=== PATIENT | male | born 1990 | race Caucasian/White ===

== ENCOUNTER 2024-10-20 08:07 | Outpatient (CLI) | payer BC, SELFPAY ==
--- NOTE | 2024-10-20 08:15 | CRLHL7_ITS ---
For Patients: As a result of the Century Cures Act, medical imaging exams and procedure reports are released immediately into your electronic medical record. You may view this report before your referring provider. If you have questions, please contact your health care provider. CLINICAL INDICATION: Metatarsalgia of the 4th COMPARISON IMAGING STUDIES: Radiographs 10/10/2024. TECHNICAL: Noncontrast MRI of the right forefoot. Axial, sagittal and coronal T1, PD and STIR images. 1.5 Sherin MR scanner. 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 There is also periarticular soft tissue edema and synovitis within the joint space. Radiographically, there is erosive change. On sagittal STIR image number 8 of series 7, there is a nondisplaced fracture involving the proximal metaphysis/base of the proximal phalanx of the 4th toe. Arthrosis of the interphalangeal joint of the 5th toe with periarticular bone marrow edema. There are likely small erosions. Less pronounced changes involve the interphalangeal joints of the 2nd and 3rd toes. Minor 1st MTP joint degenerative changes. Mild hallux valgus. Bunion. 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 Second through 5th MTP joints are maintained. The metatarsal bones are intact without significant metatarsal bone stress change nor acute fracture. Incomplete bipartite morphology of the medial sesamoid bone. Flexor and extensor tendons are intact. No significant muscle atrophy. No Dhillon`s neuroma. Plantar aponeurosis at the forefoot level is intact. IMPRESSION: 1. 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 Severe arthrosis of the interphalangeal joint of the 5th toe with periarticular bone marrow edema and suspected small erosions. Lesser changes involving other interphalangeal joints. These findings raise the possibility of seronegative spondyloarthropathy (such as psoriatic arthritis) versus inflammatory arthropathy (e.g. Rheumatoid arthritis). Polyarticular involvement makes infection less likely. 2. Superimposed nondisplaced fracture of the proximal metaphysis/base of the proximal phalanx of the 4th toe. 3. 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 4. No metatarsal bone stress change or metatarsal fracture. Dictated by Elie Boone MD @ 10/20/2024 1:52:59 PM (Electronically Signed)
== END 2024-10-20 08:08 | disposition home or self-care (01) ==
LOC: MRI 08:08
PROVIDERS: Visit Provider Podiatrist
DX: M77.41 Metatarsalgia, right foot (principal); S92.911A Unspecified fracture of right toe(s), initial encounter for closed fracture; M20.41 Other hammer toe(s) (acquired), right foot
CPT/HCPCS: 73718

== ENCOUNTER 2025-06-09 18:45 | Emergency (ER) | payer BC, SELFPAY ==
--- OUTSIDE RECORDS SUMMARY | 2025-06-09 15:40 | XMS_ITS | Encounter Summary ---
Author Organization [employer] Address [address] [address] Care Team Providers Care Route Vending Machine Servicer Name Role Phone Angel Maria MD Primary Care Provider [phone] Reason for Visit * Reason Comments Headache Encounter Details Date Type Department Care Team (Late st Contact Info) Description 06/09/2025 3:40 PM CDT Office Visit [facility] [address] [place] [address] Carol Padgett MD [address] [place], [place] [id number] Nonintractable headache, unspecified chronicity pattern, unspecified headache type Social History Tobacco Use Types Packs/Day Years Used Date Smoking Tobacco: Former Cigarettes 0.3 11.9 1 12/05/2010 - 09/13/2023 Smokeless Tobacco: Former Quit: 09/06/2015 Tobacco Cessation:Counseling Given: Not Answered Comments:Quit a month ago completely Alcohol Use Standard Drinks/Week Comments Not Currently 0 (1 standard drink = 0.6 oz pur e alcohol) PHQ-2 Answer Date Recorded PHQ-2 Score 1 06/17/2024 Sex and Gender Information Value Date Recorded Sex Assigned at Male 11/04/2021 7:44 PM RAILCAR MECHANIC Legal Sex Male 6:12 AM CDT Gender Identity Male 11/04/2021 7:44 PM RAILCAR MECHANIC Sexual Orientation Straight 11/04/2021 7: 44 PM RAILCAR MECHANIC Occupation Industry Job Start Date Job End Date unemployed Not on file Not on file Not on file documented as of this encounter Last Filed Vital Signs Vital Sign Reading Time Taken Comments Blood Pressure 139/72 06/09/2025 3:25 PM CDT Pulse 84 06/09/2025 3:25 PM CDT Temperature 36.6 C (97.9 F) 06/09/2025 3:25 PM CDT Respiratory Rate 16 06/09/2025 3:25 PM CDT Oxygen Saturation 97% 06/09/2025 3:25 PM CDT Inhaled Oxygen Concentration - - Weight - - Height - - Body Mass Index - - documented in this encounter Progress Notes * Carol Padgett MD - 06/09/2025 3:40 PM CDT [facility] Provider Note Patient: Carlos Soto Age: 35 y.o. Date Of : 1990 Urgent Care Provider: Carol Padgett MD Date of Service: 06/09/2025 CHIEF COMPLAINT Chief Complaint Patient presents with Headache HISTORY OF PRESENT ILLNESS 35 y.o. year old male presents to the Urgent Care today for evaluation of Severe headache and neurologic changes. Patient has a month ago he was at the gym and was doing leg press. While he was doingthe leg press he felt a ???pop?? and instant pain in the back of his head. He went to an orthopedic center who did an x-ray of his neck it sounds like and that was within normal limits. For the past month he has had this horrific pain in his head whenever he is active or doing anything strenuous. He also said he had garbled words last night and his became very concerned. He has been trying Tylenol and ibuprofen and nothing has been helping. Patient says that he never cries but he has beencrying multiple times over the last month because of the severity of the headache. He says it will ???drop him to his knees and ???. Currently he does not have any visual changes or hearing loss. Speech is appropriate. He denies any numbness or tingling in his arms or his legs. No head injury. Has not been sick with any cough or cold symptoms. Denies fever. Patient states his mom has a history ofan aneurysm. He denies any chest pain or shortness of breath. Reviewed Nursing Notes: Arthur Alvarenga RN 06/09/25 [id number] Signed Pt states 1 month ago he was at the gym doing the leg press and felt a pop and instant pain in his head. Has had an xray that was normal. For he last month has had pain in head that gets worse whenhe is active, or doing anything strenuous. States his words were garbled last night while trying totalk to his . Has tried Tylenol, Excedrin and ibuprofen. Patient requests an excuse letter for work/school: No REVIEW OF SYSTEMS As reflected above in HPI. With open ended questioning the patient denies any other complaints or concerns for today's visit. PRIOR HISTORY Medications: Outpatient Medications Prior to Visit Medication Sig Dispense Refill busPIRone (BUSPAR) 7.5 MG tablet Take 1 Tablet (7.5 mg) by mouth two times a day. (Patient not taking: Reported on 06/09/2025) 180 Tablet 3 methylPREDNISolone (MEDROL 21 TABLET DOSEPACK) 4 MG tablet Take as directed. (Patient not taking: Reported on 04/03/2025) 21 Tablet 0 mirtazapine (REMERON) 7.5 MG tablet Take 1 Tablet (7.5 mg) by mouth daily at bedtime. traZODone (DESYREL) 100 MG tablet Take 1-2 Tablets (100-200 mg) by mouth daily at bedtime. 180 Tablet 3 venlafaxine (EFFEXORXR) 75 MG 24 hour release capsule Take 1 Capsule (75 mg) by mouth daily. cyclobenzaprine (FLEXERIL) 10 MG tablet Take 1 Tablet (10 mg) by mouth at bedtime as needed for Muscle Spasms. 10 Tablet 0 No facility-administered medications prior to visit. Reviewed via [facility] Chart Review/CareEverywhere: Allergies Past Medical/Surgical History Family/Social History PHYSICAL EXAM Vitals Reviewed: BP 139/72 (BP Location: Left Arm, BP Cuff Size: Regular) Pulse 84 Temp 36.6 ??C (97.9 ??F) (Oral) Resp 16 SpO2 97% Alert and oriented in no apparent distress. Constitutional: Alert, Cooperative, Conversational HENT: Atraumatic, no obvious abnormality to the head/face Eyes: Eyes track movements normally during exam, no drainage, conjunctiva normal Neck: Moves neck freely and normally throughout exam, no visible abnormality Respiratory: No respiratory distress. SPO2 as above. Normal Effort. Talking in full sentences. CTA bilaterally. Cardiovascular: BP and Heart Rate as above. RRR without MRG. Musculoskeletal: Normal use of extremities throughout exam without evidence of abnormality. Gastrointestinal: Soft, nontender, nondistended, normal bowel sounds. Neurological: Alert and oriented. Speech is clear and appropriate. No neurologic deficits appreciated. Skin: Dry, No evidence rash/abrasion/laceration on my exam. LABS - IMAGING - MEDICATIONS LABS/EKG: No results found for any visits on 06/09/25. IMAGING: No results found. INTERVENTIONS: MEDICAL DECISION MAKING Patient seen and assessed. Presented to Urgent Care for exertional headaches following an episode of the severe headache. Patient has also had neurologic symptoms with blurry vision off and on and change in his speech pattern. He understands he has to go to the ER for further evaluation and treatment at a higher level facility. He needs evaluation of the higher level facility where they have advanced imaging. He isn't stable condition and will go immediately to the ER. He understands there is no medical care between the 2 Healthcare facility so if he has a change in his condition that could result in medical illness, disability, hospitalization or . I call [facility] they will accept the patient in transfer. ASSESSMENT & PLAN DIAGNOSIS: ICD-10-CM 1. Nonintractable headache, unspecified chronicity pattern, unspecified headache type R51.9 No orders of the defined types were placed in this encounter. DISPOSITION: [facility] ER There are no Patient Instructions on file for this visit. Carol Padgett MD [facility] documented in this encounter Nursing Notes * Arthur Alvarenga, RN - 06/09/2025 3:40 PM CDT Pt states 1 month ago he was at the gym doing the leg press and felt a pop and instant pain in his head. Has had an xray that was normal. For he last month has had pain in head that gets worse whenhe is active, or doing anything strenuous. States his words were garbled last night while trying totalk to his . Has tried Tylenol, Excedrin and ibuprofen. Patient requests an excuse letter for work/school: No documented in this encounter Plan of Treatment Not on file documented as of this encounter Visit Diagnoses Diagnosis Nonintractable headache, unspecified chronicity pattern, unspecified headache type documented in this encounter Care Teams Route Vending Machine Servicer Relationship Specialty Start Date End Date Angel Maria MD [address] [place] [address] PCP - General Family Practice 05/20/17 documented as of this encounter
--- OUTSIDE RECORDS SUMMARY | 2025-06-09 15:41 | XMS_ITS | Encounter Summary ---
Author Organization [facility] Address [address] [place] [address] Care Team Providers Care Lard Renderer Name Role Phone Hany Alexis MD Unavailable [phone] Reynaldo Sorensen DO Primary Care Provider [phone] Reynaldo Sorensen DO Unavailable [phone] Reason for Visit * Reason Comments Headache Encounter Details Date Type Department Care Team (Late st Contact Info) Description 06/09/2025 3:41 PM CDT - 06/09/2025 5:07 PM CDT Emergency [facility] Emergency Dept [address] [place] [address] [phone] Discharge Disposition: Home or Self Care Social History Tobacco Use Types Packs/Day Years Used Date Smoking Tobacco: Former Cigarettes Q uit: 2020 Passive Smoke Exposure: Current Smokeless Tobacco: Former Quit: 10/2023 Alcohol Use Standard Drinks/Week Comments No 0 (1 standard drink = 0.6 oz pur e alcohol) PHQ-2 Answer Date Recorded PHQ-2 Score 2 04/17/2025 Sex and Gender Information Value Date Recorded Sex Assigned at Male 07/08/2024 1:56 PM CDT Legal Sex Male 4:41 AM FINISH SANDER Gender Identity Male 07/08/2024 1:56 PM CDT Sexual Orientation Not on file documented as of this encounter Last Filed Vital Signs Vital Sign Reading Time Taken Comments Blood Pressure 155/91 06/09/2025 3:46 PM CDT Pulse 72 06/09/2025 3:46 PM CDT Temperature 37 C (98.6 F) 06/09/2025 3:46 PM CDT Respiratory Rate 18 06/09/2025 3:46 PM CDT Oxygen Saturation 99% 06/09/2025 3:46 PM CDT Inhaled Oxygen Concentration - - Weight 91.3 kg (201 lb 4.5 oz) 06/09/2025 3:46 P M CDT Height 180.3 cm (5' 11) 06/09/2025 3:46 PM CDT Body Mass Index 28.07 06/09/2025 3:46 PM CDT documented in this encounter Medications at Time of Discharge mirtazapine (REMERON) 7.5 MG tabletIndications :Insomnia, unspecified type,Anxiety,Depr ession, unspecified depression type Take 1 tablet (7.5 mg) by mouth at bedtime. 90 tablet 3 01/19/2025 multivitamin (ONE-DAILY) tablet Take 1 tablet by mouth daily. 07/26/2024 traZODone (DESYREL) 100 MG tabletIndications :Insomnia, unspecified type Take 1 tablet (100 mg) by mouth at bedtime. 90 tablet 3 01/19/2025 UNABLE TO FIND MEDICATION NAME: Probiotic 07/26/2024 venlafaxine (EFFEXOR XR) 75 MG 24 hr capsuleIndication s:Uncomplicated opioid dependence (H) Take 1 capsule (75 mg) by mouth daily. 90 capsule 3 01/19/2025 documented as of this encounter ED Notes * Carol Mendez RN - 06/09/2025 5:05 PM CDT Patient up to registration desk wanting to leave, journalists and other writers attempted to speak with patient who statesthis is bullshit, all these people are being seen before me. Department Mgr attempted to explain acuity in the ED and the possibility others were getting other testing patient states right, this is fucking stupid, and I ain't signing shit. Patient left after refusing to sign AMA form. * Donita Mcclellan RN - 06/09/2025 3:46 PM CDT Arrives ambulatory from the clinic. States he had an injury at the gym aprox 1 month ago and has been having migraine since then. States had a 1 episode of garbled speech. Also reports unfocused and blurry vision. Tylenol last @ 1000. documented in this encounter Plan of Treatment Not on file documented as of this encounter Visit Diagnoses Not on filedocumented in this encounter Additional Health Concerns Assessment Noted Time PHQ-9 Depression Total Score: 7 04/17/20 25 10:32 AM CDT documented as of this encounter Care Teams Lard Renderer Relationship Specialty Start Date End Date Reynadlo Sorensen DO [address] [place] [id number] PCP - General Family Medicine 07/26/24 Hany Alexis MD Internal Medicine 12/07/12 Reynaldo Sorensen DO [address] [place] [address] Assigned PCP 09/07/24 documented as of this encounter
--- OUTSIDE RECORDS SUMMARY | 2025-06-09 18:47 | XMS_ITS | Encounter Summary ---
Author Organization [facility] Address [address] [place] [address] Care Team Providers Care Certified Industrial Hygienist Name Role Phone Hany Alexis MD Unavailable [phone] Reynaldo Sorensen DO Primary Care Provider [phone] Reynaldo Sorensen DO Unavailable Encounter Details Date Type Department Care Team ([facility] st Contact Info) Description 04/22/2025 Results Follow-Up [address] [address] Reynaldo Sorensen DO [address] [place] [address] Subj: Message about your results Social History Tobacco Use Types Packs/Day Years [...] PM CDT Legal Sex Male 4:41 AM CAST ASSOCIATE Gender Identity Male 07/08/2024 1:56 PM CDT Sexual Orientation Not on file documented as of this encounter Plan of Treatment Not on file documented as of this encounter Visit Diagnoses Not on filedocumented in this encounter Additional Health Concerns Assessment Noted Time PHQ-9 Depression Total Score: 7 04/17/20 25 10:32 AM CDT documented as of this encounter Care Teams Certified Industrial Hygienist Relationship Specialty Start Date End Date Reynaldo Sorensen DO [address] [place] [address] PCP - General Family Medicine 07/26/24 Hany Alexis MD Internal Medicine 12/07/12 Reynaldo Sorensen DO [address] [place] [address] Assigned PCP 09/07/24 documented as of this encounter
--- OUTSIDE RECORDS SUMMARY | 2025-06-09 18:47 | XMS_ITS | Clinical Summary ---
Author Organization [facility] Address [address] [place] [address] Care Team Providers Care Shredded Filler Hopper Feeder Name Role Phone Pcp, No Primary Care Provider Unavailabl e Allergies No known active allergies Medications CHLORDIAZEPOXIDE HCL (LIBRIUM ORAL) Take 25 mg by mouth 2 times daily. 05/15/2011 Active Social History Tobacco Use Types Packs/Day Years Used Date Smoking Tobacco: Every Day Cigarettes Smokeless Tobacco: Never Alcohol Use Standard Drinks/Week Comments Yes 0 (1 standard drink = 0.6 oz pur e alcohol) Sex and Gender Information Value Date Recorded Sex Assigned at Not on file Legal Sex Male 6:36 PM SOLUTION DIRECTOR Gender Identity Not on file Sexual Orientation Not on file Obstetrics History Last Filed Vital Signs Vital Sign Reading Time Taken Comments Blood Pressure 125/76 05/15/2011 10:44 PM CDT Pulse 97 05/15/2011 10:44 PM CDT Temperature 36.8 C (98.2 F) 05/15/2011 10:44 PM CDT Respiratory Rate 18 05/15/2011 10:44 PM CDT Oxygen Saturation 100% 05/15/2011 10:44 PM CDT Inhaled Oxygen Concentration - - Weight 70.8 kg (156 lb) 05/15/2011 10:44 PM CDT Height 177.8 cm (5' 10) 05/15/2011 10:44 PM CDT Body Mass Index 22.38 05/15/2011 10:44 PM CDT Plan of Treatment Not on file Care Teams Shredded Filler Hopper Feeder Relationship Specialty Start Date End Date Pcp, No . PCP - General 6/30/11
--- OUTSIDE RECORDS SUMMARY | 2025-06-09 18:47 | XMS_ITS | Encounter Summary ---
Author Organization [employer] Address [address] [address] Care Team Providers Care Anesthesiology Resident Name Role Phone Angel Maria MD Primary Care Provider [phone] Encounter Details Date Type Department Care Team (Late st Contact Info) Description 09/27/2015 Correspondence [facility] [address] [place] [address], [address] [place], [place] [address] Kristine Mason, PARQUET FLOOR LAYER'S HELPER, [facility] Social History Tobacco Use Types Packs/Day Years Used Date Smoking Tobacco: Every Day Cigarettes 0.5 0.3 Smokeless Tobacco: Never Alcohol Use Standard Drinks/Week Comments No 0 (1 standard drink = 0.6 oz pur e alcohol) Sober for one month Sex and Gender Information Value Date Recorded Sex Assigned at Male 11/04/2021 7:44 PM PSYCHIATRIC SOCIAL WORKER SUPERVISOR Legal Sex Male 6:12 AM CDT Gender Identity Male 11/04/2021 7:44 PM PSYCHIATRIC SOCIAL WORKER SUPERVISOR Sexual Orientation Straight 11/04/2021 7: 44 PM PSYCHIATRIC SOCIAL WORKER SUPERVISOR Occupation Industry Job Start Date Job End Date unemployed Not on file Not on file Not on file documented as of this encounter Plan of Treatment Not on file documented as of this encounter Visit Diagnoses Not on filedocumented in this encounter Care Teams Anesthesiology Resident Relationship Specialty Start Date End Date Angel Maria MD [address] [place] [address] PCP - General Family Practice 05/20/17 documented as of this encounter
--- OUTSIDE RECORDS SUMMARY | 2025-06-09 18:47 | XMS_ITS | Encounter Summary ---
Author Organization [facility] Address [address] [place] [address] Care Team Providers Care Home Attendant Name Role Phone Kailey Monsalve MD Primary Care Provider [facility] Primary Care Pr ovider Unavailable Hany Alexis MD Unavailable Angel Maria MD Primary Care Provider [phone] Reynaldo Sorensen DO Primary Care Provider Reynaldo Sorensen DO Unavailable [phone] Encounter Details Date Type Department Care Team (Late st Contact Info) Description 10/23/[address] [address] Unknown, DoctorMD [facility] Social History Tobacco Use Types Packs/Day Years Used Date Smoking Tobacco: Former Cigarettes Q uit: 2020 Passive Smoke Exposure: Current Smokeless Tobacco: Former Quit: 10/2023 Alcohol Use Standard Drinks/Week Comments No 0 (1 standard drink = 0.6 oz pur e alcohol) Sex and Gender Information Value Date Recorded Sex Assigned at Male 07/08/2024 1:56 PM CDT Legal Sex Male 4:41 AM PULMONOLOGIST INTENSIVIST Gender Identity Male 07/08/2024 1:56 PM CDT Sexual Orientation Not on file documented as of this encounter Plan of Treatment Not on file documented as of this encounter Visit Diagnoses Diagnosis [facility]- Primary documented in this encounter Care Teams Home Attendant Relationship Specialty Start Date End Date Kailey Monsalve MD PCP - General Internal Medicine 11/01/10 12/06/12 [facility] PCP - General 12/07/12 08/13/20 Angel Maria MD [address] [place] [address] PCP - General Family Practice 08/14/20 07/25/24 [place] [address] [place] [address] PCP - General Family Medicine 07/26/24 Hany Alexis MD Internal Medicine 12/07/12 [place] [address] [place] [address] [place] [address] Assigned PCP 09/07/24 documented as of this encounter
--- OUTSIDE RECORDS SUMMARY | 2025-06-09 18:47 | XMS_ITS | Encounter Summary ---
Author Organization [employer] Address [address] [place] [address] Care Team Providers Care Plasma Table Operator Name Role Phone Angel Maria MD Primary Care Provider [phone] Encounter Details Date Type Department Care Team (Late st Contact Info) Description 09/10/2015 Outside Hospital External to [facility] DISCHARGE SUMMARY Social History Tobacco Use Types Packs/Day Years Used Date Smoking Tobacco: Every Day Cigarettes 0.5 0.3 Smokeless Tobacco: Never Alcohol Use Standard Drinks/Week Comments No 0 (1 standard drink = 0.6 oz pur e alcohol) Sober for one month Sex and Gender Information Value Date Recorded Sex Assigned at Male 11/04/2021 7:44 PM ELECTRICAL WORKER Legal Sex Male 6:12 AM CDT Gender Identity Male 11/04/2021 7:44 PM ELECTRICAL WORKER Sexual Orientation Straight 11/04/2021 7: 44 PM ELECTRICAL WORKER Occupation Industry Job Start Date Job End Date unemployed Not on file Not on file Not on file documented as of this encounter Plan of Treatment Not on file documented as of this encounter Visit Diagnoses Not on filedocumented in this encounter Care Teams Plasma Table Operator Relationship Specialty Start Date End Date Angel Maria MD [address] [place] [address] PCP - General Family Practice 05/20/17 documented as of this encounter
--- OUTSIDE RECORDS SUMMARY | 2025-06-09 18:47 | XMS_ITS | Encounter Summary ---
Author Organization [employer] Address [address] [place] [address] Care Team Providers Care Green Belt Name Role Phone Angel Maria MD Primary Care Provider [phone] Encounter Details Date Type Department Care Team (Late st Contact Info) Description 06/07/2014 Emergency Room External to [facility], Provider FEVER VOMITING Social History Tobacco Use Types Packs/Day Years Used Date Smoking Tobacco: Every Day Cigarettes 0.5 0.3 Smokeless Tobacco: Never Alcohol Use Standard Drinks/Week Comments No 0 (1 standard drink = 0.6 oz pur e alcohol) Sober for one month Sex and Gender Information Value Date Recorded Sex Assigned at Male 11/04/2021 7:44 PM STAMP PRESSER Legal Sex Male 6:12 AM CDT Gender Identity Male 11/04/2021 7:44 PM STAMP PRESSER Sexual Orientation Straight 11/04/2021 7: 44 PM STAMP PRESSER Occupation Industry Job Start Date Job End Date unemployed Not on file Not on file Not on file documented as of this encounter Plan of Treatment Not on file documented as of this encounter Visit Diagnoses Not on filedocumented in this encounter Care Teams Green Belt Relationship Specialty Start Date End Date Angel Maria MD [address] [place] [address] PCP - General Family Practice 05/20/17 documented as of this encounter
--- OUTSIDE RECORDS SUMMARY | 2025-06-09 18:47 | XMS_ITS | Encounter Summary ---
Author Organization [employer] Address [address] [place] [address] Care [address] Scientist Name Role Phone Angel Maria MD Primary Care Provider +1- [phone] Encounter Details Date Type Department Care Team (Late st Contact Info) Description 08/22/2015 Outside Hospital External to [facility], [facility] DISCHARGE SUMMARY Social History Tobacco Use Types Packs/Day Years Used Date Smoking Tobacco: Every Day Cigarettes 0.5 0.3 Smokeless Tobacco: Never Alcohol Use Standard Drinks/Week Comments No 0 (1 standard drink = 0.6 oz pur e alcohol) Sober for one month Sex and Gender Information Value Date Recorded Sex Assigned at Male 11/04/2021 7:44 PM EXECUTIVE COMPENSATION ANALYST Legal Sex Male 6:12 AM CDT Gender Identity Male 11/04/2021 7:44 PM EXECUTIVE COMPENSATION ANALYST Sexual Orientation Straight 11/04/2021 7: 44 PM EXECUTIVE COMPENSATION ANALYST Occupation Industry Job Start Date Job End Date unemployed Not on file Not on file Not on file documented as of this encounter Plan of Treatment Not on file documented as of this encounter Visit Diagnoses Not on filedocumented in this encounter Care Teams Rd Scientist Relationship Specialty Start Date End Date Angel Maria MD [address] [place] [address] PCP - General Family Practice 05/20/17 documented as of this encounter
--- OUTSIDE RECORDS SUMMARY | 2025-06-09 18:47 | XMS_ITS | Encounter Summary ---
Author Organization [employer] Address [address] [place] [address] Care Team Providers Care Airport Clerk Name Role Phone Angel Maria MD Primary Care Provider +1- [phone] Encounter Details Date Type Department Care Team (Late st Contact Info) Description 07/25/2015 Outside Hospital External to [facility], [facility] DISCHARGE SUMMARY Social History Tobacco Use Types Packs/Day Years Used Date Smoking Tobacco: Every Day Cigarettes 0.5 0.3 Smokeless Tobacco: Never Alcohol Use Standard Drinks/Week Comments No 0 (1 standard drink = 0.6 oz pur e alcohol) Sober for one month Sex and Gender Information Value Date Recorded Sex Assigned at Male 11/04/2021 7:44 PM MICA SPLITTER Legal Sex Male 6:12 AM CDT Gender Identity Male 11/04/2021 7:44 PM MICA SPLITTER Sexual Orientation Straight 11/04/2021 7: 44 PM MICA SPLITTER Occupation Industry Job Start Date Job End Date unemployed Not on file Not on file Not on file documented as of this encounter Plan of Treatment Not on file documented as of this encounter Visit Diagnoses Not on filedocumented in this encounter Care Teams Airport Clerk Relationship Specialty Start Date End Date Angel Maria MD [address] [place] [address] PCP - General Family Practice 05/20/17 documented as of this encounter
--- OUTSIDE RECORDS SUMMARY | 2025-06-09 18:47 | XMS_ITS | Encounter Summary ---
Author Organization [employer] Address [address] [place] [address] Care Team Providers Care Account Manager Name Role Phone Angel Maira MD Primary Care Provider +1- [phone] Encounter Details Date Type Department Care Team (Late st Contact Info) Description 07/24/2015 Outside Hospital External to [facility], [facility] HISTORY AND PHYSICAL Social History Tobacco Use Types Packs/Day Years Used Date Smoking Tobacco: Every Day Cigarettes 0.5 0.3 Smokeless Tobacco: Never Alcohol Use Standard Drinks/Week Comments No 0 (1 standard drink = 0.6 oz pur e alcohol) Sober for one month Sex and Gender Information Value Date Recorded Sex Assigned at Male 11/04/2021 7:44 PM TREAD BUILDER Legal Sex Male 6:12 AM CDT Gender Identity Male 11/04/2021 7:44 PM TREAD BUILDER Sexual Orientation Straight 11/04/2021 7: 44 PM TREAD BUILDER Occupation Industry Job Start Date Job End Date unemployed Not on file Not on file Not on file documented as of this encounter Plan of Treatment Not on file documented as of this encounter Visit Diagnoses Not on filedocumented in this encounter Care Teams Account Manager Relationship Specialty Start Date End Date Angel Maria MD [address] [place] [address] PCP - General Family Practice 05/20/17 documented as of this encounter
--- OUTSIDE RECORDS SUMMARY | 2025-06-09 18:47 | XMS_ITS | Encounter Summary ---
Author Organization [employer] Address [address] [place] [address] Care Team Providers Care Lead Ingot Molder Name Role Phone Angel Maria MD Primary Care Provider +1- [phone] Encounter Details Date Type Department Care Team (Late st Contact Info) Description 09/06/2015 Emergency Room External to [facility] OPIOID DEPENDENCE UNCOMPLICATED Social History Tobacco Use Types Packs/Day Years Used Date Smoking Tobacco: Every Day Cigarettes 0.5 0.3 Smokeless Tobacco: Never Alcohol Use Standard Drinks/Week Comments No 0 (1 standard drink = 0.6 oz pur e alcohol) Sober for one month Sex and Gender Information Value Date Recorded Sex Assigned at Male 11/04/2021 7:44 PM UPHOLSTERY REPAIRER Legal Sex Male 6:12 AM CDT Gender Identity Male 11/04/2021 7:44 PM UPHOLSTERY REPAIRER Sexual Orientation Straight 11/04/2021 7: 44 PM UPHOLSTERY REPAIRER Occupation Industry Job Start Date Job End Date unemployed Not on file Not on file Not on file documented as of this encounter Plan of Treatment Not on file documented as of this encounter Visit Diagnoses Not on filedocumented in this encounter Care Teams Lead Ingot Molder Relationship Specialty Start Date End Date Angel Maria MD [address] [place] [address] PCP - General Family Practice 05/20/17 documented as of this encounter
--- OUTSIDE RECORDS SUMMARY | 2025-06-09 18:47 | XMS_ITS | Encounter Summary ---
Author Organization [employer] Address [address] [place] [address] Care Team Providers Care Media Account Executive Name Role Phone Angel Maria MD Primary Care Provider +1- [phone] Encounter Details Date Type Department Care Team (Late st Contact Info) Description 03/03/2013 Outside Hospital External to [facility], Provider DISCHARGE SUMMARY Social History Tobacco Use Types Packs/Day Years Used Date Smoking Tobacco: Every Day Cigarettes 0.5 0.3 Smokeless Tobacco: Never Alcohol Use Standard Drinks/Week Comments No 0 (1 standard drink = 0.6 oz pur e alcohol) Sober for one month Sex and Gender Information Value Date Recorded Sex Assigned at Male 11/04/2021 7:44 PM SCHOOL TRAFFIC GUARD Legal Sex Male 6:12 AM CDT Gender Identity Male 11/04/2021 7:44 PM SCHOOL TRAFFIC GUARD Sexual Orientation Straight 11/04/2021 7: 44 PM SCHOOL TRAFFIC GUARD Occupation Industry Job Start Date Job End Date unemployed Not on file Not on file Not on file documented as of this encounter Progress Notes * [facility], Provider - 03/03/2013 12:00 AM CDT documented in this encounter Plan of Treatment Not on file documented as of this encounter Visit Diagnoses Not on filedocumented in this encounter Care Teams Media Account Executive Relationship Specialty Start Date End Date Angel Maria MD [address] [place] [address] PCP - General Family Practice 05/20/17 documented as of this encounter
--- OUTSIDE RECORDS SUMMARY | 2025-06-09 18:47 | XMS_ITS | Encounter Summary ---
Author Organization [employer] Address [address] [place] [address] Care Team Providers Care Warp Trucker Name Role Phone Angel Maria MD Primary Care Provider +1- [phone] Encounter Details Date Type Department Care Team (Late st Contact Info) Description 07/09/2015 Correspondence External to External, [place] [address] MEDICAL OPINION Social History Tobacco Use Types Packs/Day Years Used Date Smoking Tobacco: Every Day Cigarettes 0.5 0.3 Smokeless Tobacco: Never Alcohol Use Standard Drinks/Week Comments No 0 (1 standard drink = 0.6 oz pur e alcohol) Sober for one month Sex and Gender Information Value Date Recorded Sex Assigned at Male 11/04/2021 7:44 PM CONCRETE FINISHER APPRENTICE Legal Sex Male 6:12 AM CDT Gender Identity Male 11/04/2021 7:44 PM CONCRETE FINISHER APPRENTICE Sexual Orientation Straight 11/04/2021 7: 44 PM CONCRETE FINISHER APPRENTICE Occupation Industry Job Start Date Job End Date unemployed Not on file Not on file Not on file documented as of this encounter Plan of Treatment Not on file documented as of this encounter Visit Diagnoses Not on filedocumented in this encounter Care Teams Warp Trucker Relationship Specialty Start Date End Date Angel Maria MD [address] [place] [address] PCP - General Family Practice 05/20/17 documented as of this encounter
--- OUTSIDE RECORDS SUMMARY | 2025-06-09 18:47 | XMS_ITS | Encounter Summary ---
Author Organization [employer] Address [address] [place] [address] Care Team Providers Care Manager Software Name Role Phone Angel Maria MD Primary Care Provider +1- [phone] Encounter Details Date Type Department Care Team (Late st Contact Info) Description 07/25/2015 Outside Hospital External to [facility], [facility] DISCHARGE SUMMARY Social History Tobacco Use Types Packs/Day Years Used Date Smoking Tobacco: Every Day Cigarettes 0.5 0.3 Smokeless Tobacco: Never Alcohol Use Standard Drinks/Week Comments No 0 (1 standard drink = 0.6 oz pur e alcohol) Sober for one month Sex and Gender Information Value Date Recorded Sex Assigned at Male 11/04/2021 7:44 PM SHADOW GRAPH WEIGHT OPERATOR Legal Sex Male 6:12 AM CDT Gender Identity Male 11/04/2021 7:44 PM SHADOW GRAPH WEIGHT OPERATOR Sexual Orientation Straight 11/04/2021 7: 44 PM SHADOW GRAPH WEIGHT OPERATOR Occupation Industry Job Start Date Job End Date unemployed Not on file Not on file Not on file documented as of this encounter Plan of Treatment Not on file documented as of this encounter Visit Diagnoses Not on filedocumented in this encounter Care Teams Manager Software Relationship Specialty Start Date End Date Angel Maria MD [address] [place] [address] PCP - General Family Practice 05/20/17 documented as of this encounter
--- OUTSIDE RECORDS SUMMARY | 2025-06-09 18:47 | XMS_ITS | Encounter Summary ---
Author Organization [employer] Address [address] [address] Care Team Providers Care House Designer Name Role Phone Angel Maria MD Primary Care Provider +1- [phone] Encounter Details Date Type Department Care Team (Late st Contact Info) Description 11/10/2012 Correspondence [facility] [address] [place], [place] [address] Hany Alexis MD REQUEST FOR MED OPINION Social History Tobacco Use Types Packs/Day Years Used Date Smoking Tobacco: Every Day Cigarettes 0.5 0.3 Smokeless Tobacco: Never Alcohol Use Standard Drinks/Week Comments No 0 (1 standard drink = 0.6 oz pur e alcohol) Sober for one month Sex and Gender Information Value Date Recorded Sex Assigned at Male 11/04/2021 7:44 PM RINK RAT Legal Sex Male 6:12 AM CDT Gender Identity Male 11/04/2021 7:44 PM RINK RAT Sexual Orientation Straight 11/04/2021 7: 44 PM RINK RAT Occupation Industry Job Start Date Job End Date unemployed Not on file Not on file Not on file documented as of this encounter Progress Notes * Hany Alexis MD - 11/10/2012 12:00 AM CST RAT documented in this encounter Plan of Treatment Not on file documented as of this encounter Visit Diagnoses Not on filedocumented in this encounter Care Teams House Designer Relationship Specialty Start Date End Date Angel Maria MD [address], [place] [address] PCP - General Family Practice 05/20/17 documented as of this encounter
--- OUTSIDE RECORDS SUMMARY | 2025-06-09 18:47 | XMS_ITS | Clinical Summary ---
Author Organization [place] Address [address] [place] [address] Care Team Providers Care Cane Weigher Name Role Phone Hany Alexis MD Unavailable [phone] Reynaldo Sorensen DO Primary Care Provider Reynaldo Sorensen DO Unavailable [phone] Allergies No known active allergies Medications * This document contains information received from the source organization and may not represent a complete record from that organization. multivitamin (ONE-DAILY) tablet Take 1 tablet by mouth daily. 4 Active UNABLE TO FIND MEDICATION NAME: Probiotic 4 Active venlafaxine (EFFEXOR XR) 75 MG 24 hr capsuleIndicatio ns:Uncomplicated opioid dependence (H) Take 1 capsule (75 mg) by mouth daily. 90 capsule 3 5 Active mirtazapine (REMERON) 7.5 MG tabletIndication s:Insomnia, unspecified type,Anxiety,Dep ression, unspecified depression type Take 1 tablet (7.5 mg) by mouth at bedtime. 90 tablet 3 5 Active traZODone (DESYREL) 100 MG tabletIndication s:Insomnia, unspecified type Take 1 tablet (100 mg) by mouth at bedtime. 90 tablet 3 5 Active Active Problems Problem Noted Date Diagnosed Date Depression, major, recurrent, moderate 5 Substance withdrawal 09/06/2015 Heroin withdrawal 08/18/2015 Opiate dependence 07/24/2015 Anxiety 09/09/2011 Frostbite of foot, right 11/01/2010 Overview (11/01/2010): Sustained 10/23/2010, hospitalized at [facility] for 9 days. Received intra-arterial thrombolytics and on anticoagulation. CARDIOVASCULAR SCREENING; LDL GOAL LESS THAN 160 11/01/2010 Narcotic abuse 11/01/2010 Overview (11/01/2010): Noted during hospitalization at [facility]. Pt discharged on oxycodone 10 mg for pain with quantity of 60 dispensed on 10/31. Out-patient rehab recommended by psychiatry during the hospitalization. Encounters Date Type Department Care Team Description 06/09/2025 3:41 PM CDT - 06/09/2025 5:07 PM CDT Emergency [facility] Emergency Dept [address] [place] [phone] Discharge Disposition: Home or Self Care 06/09/2025 Travel 04/22/2025 Results Follow-Up [address] [address] Reynaldo Sorensen DO Subj: Message about your results 04/17/2025 1:00 PM CDT Office Visit [address] [address] Reynaldo Sorensen DO Lymphadenopathy (Primary Dx); Other fatigue 04/17/2025 Travel from Last 3 Months Immunizations Immunization Administration Dates Next Due DTAP (<7y) 06/08/1997, 3,1992,06/20,1992 Flu, Unspecified 07/31/2015 HEPA 03/08/2008,05/31/2007 HIB (PRP-T) 08/15/2012, 3,1992,04/18 HepB 08/14/2003 Hepatitis A (Vaqta/Havrix)(P eds 12m-18y) 03/08/2008,05/31/2007 Hepatitis B, Peds (Engerix-B/Recombivax HB) 08/14/2003,03/13/2003,02/02/2003,08/14 Influenza (IIV3) PF 09/25/2016,09/05/2014,2009 Influenza Vaccine >6 months,quad, PF ,11/05/2021,10/11/2019,07/23,09/22/2017 Influenza Vaccine IM Ages 6- 35 Months 4 Valent (PF) 09/16/2013 Influenza, Split Virus, Triv alent, Pf (Fluzone\Fluarix) 08/24/2015 MMR (MMRII) 02/02/2003,06/06/1993 Meningococcal (Menomune ) 05/31/2007 Meningococcal ACWY (Menactra ) 05/31/2007 TDAP (Adacel,Boostrix) 03/16/2024,09/16/2013 Td (Adult), Adsorbed 02/12/2004 Tetanus 02/12/2004 Varicella (Varivax) 05/31/2007 Family History Medical History Relation Comments Melanoma Father Skin Cancer Father Melanoma Mother Skin Cancer Mother Melanoma Paternal Grandmother Skin Cancer Sister Relation Status Comments Father Mother Paternal Grandmother Sister Social History Tobacco Use Types Packs/Day Years Used Date Smoking Tobacco: Former Cigarettes Q uit: 2020 Passive Smoke Exposure: Current Smokeless Tobacco: Former Quit: 10/2023 Tobacco Cessation:Counseling Given: Not Answered Alcohol Use Standard Drinks/Week Comments No 0 (1 standard drink = 0.6 oz pur e alcohol) PHQ-2 Answer Date Recorded PHQ-2 Score 2 04/17/2025 Sex and Gender Information Value Date Recorded Sex Assigned at Male 07/08/2024 1:56 PM CDT Legal Sex Male 4:41 AM PASS WORKER Gender Identity Male 07/08/2024 1:56 PM CDT Sexual Orientation Not on file Last Filed Vital Signs Vital Sign Reading [...] Mass Index 28.07 06/09/2025 3:46 PM CDT Plan of Treatment Health Maintenance Due Date Last Done Comments ADVANCE CARE PLANNING 1992 DEPRESSION ACTION PLAN 1992 COVID-19 VACCINE ( season) 2024 04/27/2021, 04/06/2021 YEARLY PREVENTIVE VISIT 03/16/2025 03/16/20 24, 11/05/2021, 10/05/2019, Additional history exists INFLUENZA VACCINE (#1) 2025 2, 11/05/2021, 10/11/2019, Additional history exists PHQ-9 10/17/2025 04/17/2025, 03/0 04/2025, 07/26/2024 ANNUAL REVIEW OF HM ORDERS 04/17/2026 04/17/2025, DTAP/TDAP/TD VACCINE (8 - Td or Tdap) 03/16/2034 03/16/2024, 09/16/2013, 02/12/2004, Additional history exists ZOSTER VACCINE (1 of 2) 02/19/2042 HEPATITIS B VACCINE Completed 08/14/2003, 08/14/2003, 03/13/2003, Additional history exists MENINGITIS VACCINE Aged Out 05/31/2007, 05/31/2007 No longer eligible based on patient's age to complete this topic HEPATITIS A VACCINE Completed 03/08/2008, 03/08/2008, 05/31/2007, Additional history exists HEPATITIS C SCREENING Completed 02/08/2016 , 09/07/2015, 08/19/2015, Additional history exists HIV SCREENING Completed 02/08/2016, 08/17, 08/19/2015 HPV VACCINE (No Doses Required) Completed PNEUMOCOCCAL VACCINE: PEDIATRICS (0 to 5 YEARS) AND AT-RISK PATIENTS (6 to 49 YEARS) Aged Out No longer eligible based on patient's age to complete this topic Procedures Procedure Name Priority Date/Time Associated Diagnosis Comments CBC WITH PLATELETS & DIFFERENTIAL Routine 04/17/2025 1:30 PM CDT Lymphadenopathy Other fatigue CBC WITH PLATELETS AND DIFFERENTIAL Routine 04/17/2025 1:30 PM CDT Lymphadenopathy Other fatigue LACTATE DEHYDROGENASE Routine 04/17/2025 1:30 PM CDT Lymphadenopathy Other fatigue ERYTHROCYTE SEDIMENTATION RATE AUTO Routine 04/17/2025 1:30 PM CDT Lymphadenopathy Other fatigue CRP INFLAMMATION Routine 04/17/2025 1:30 PM CDT Lymphadenopathy Other fatigue COMPREHENSIVE METABOLIC PANEL Routine 04/17/2025 1:30 PM CDT Lymphadenopathy Other fatigue HIV ANTIGEN ANTIBODY COMBO Routine 09/07/2015 11:03 AM CDT Anxiety HEPATITIS C ANTIBODY Routine 09/07/2015 11:03 AM CDT Anxiety from Last 3 Months or Most Recently Relevant to Health Maintenance Results * CBC with platelets and differential (04/17/2025 1:30 PM CDT) WBC Count 7.3 4.0 - 11.0 10e3/uL 04/17/2025 1:37 PM CDT [facility] RBC Count 5.04 4.40 - 5.90 10e6/uL 04/17/2025 1:37 PM CDT [facility] Hemoglobin 15.1 13.3 - 17.7 g/dL 04/17/2025 1:37 PM CDT [facility] Hematocrit 42.2 40.0 - 53.0 % 04/17/2025 1:37 PM CDT [facility] MCV 84 78 - 100 fL 04/17/2025 1:37 PM CDT [facility] MCH 30.0 26.5 - 33.0 pg 04/17/2025 1:37 PM CDT [facility] MCHC 35.8 31.5 - 36.5 g/dL 04/17/2025 1:37 PM CDT [facility] RDW 11.8 10.0 - 15.0 % 04/17/2025 1:37 PM CDT [facility] Platelet Count 214 150 - 450 10e3/uL 04/17/2025 1:37 PM CDT [facility] % Neutrophils 70 % 04/17/2025 1:37 PM CDT [facility] % Lymphocytes 22 % 04/17/2025 1:37 PM CDT [facility] % Monocytes 6 % 04/17/2025 1:37 PM CDT [facility] % Eosinophils 2 % 04/17/2025 1:37 PM CDT [facility] % Basophils 0 % 04/17/2025 1:37 PM CDT [facility] % Immature Granulocytes 0 % 04/17/2025 1:37 PM CDT [facility] Absolute Neutrophils 5.1 1.6 - 8.3 10e3/uL 04/17/2025 1:37 PM CDT [facility] Absolute Lymphocytes 1.6 0.8 - 5.3 10e3/uL 04/17/2025 1:37 PM CDT [facility] Absolute Monocytes 0.5 0.0 - 1.3 10e3/uL 04/17/2025 1:37 PM CDT [facility] Absolute Eosinophils 0.1 0.0 - 0.7 10e3/uL 04/17/2025 1:37 PM CDT [facility] Absolute Basophils 0.0 0.0 - 0.2 10e3/uL 04/17/2025 1:37 PM CDT [facility] Absolute Immature Granulocytes 0.0 <=0.4 10e3/uL 04/17/2025 1:37 PM CDT [facility] Blood BLOOD SPECIMEN / Unknown Venipuncture / Unknown 04/17/2025 1:30 PM CDT 04/17/2025 1:30 PM CDT Reynaldo Sorensen DO LAB - BLOOD ORDERABLES Final Result [facility] [address] [place] [address] S E Lab (no room number, 1st floor of clinic) [place] [address] * Lactate Dehydrogenase (04/17/2025 1:30 PM CDT) [facility] Lactate Dehydrogenase 183 0 - 250 U/L 04/18/2025 3:50 AM CDT [facility] Blood BLOOD SPECIMEN / Unknown Venipuncture / Unknown 04/17/2025 1:30 PM CDT 04/17/2025 1:30 PM CDT us Reynaldo Sorensen DO LAB - BLOOD ORDERABLES Final Result [facility] [place] [facility] [address] [facility], [address] [place] [address] * ESR: Erythrocyte sedimentation rate (04/17/2025 1:30 PM CDT) Pathologist [facility] Erythrocyte Sedimentation Rate 6 0 - 15 mm/hr 04/17/2025 1:43 PM CDT LABORATORY Blood BLOOD SPECIMEN / Unknown Venipuncture / Unknown 04/17/2025 1:30 PM CDT 04/17/2025 1:30 PM CDT Reynaldo Sorensen DO LAB - BLOOD ORDERABLES Final Result LABORATORY [facility] [address] [place] [address] Lab (no room number, 1st floor of clinic) [place] [address] * CRP, inflammation (04/17/2025 1:30 PM CDT) [facility] CRP Inflammation <3.00 <5.00 mg/L 04/18/20 3:50 AM CDT [facility] Blood BLOOD SPECIMEN / Unknown Venipuncture / Unknown 04/17/2025 1:30 PM CDT 04/17/2025 1:30 PM CDT Reynaldo Sorensen DO LAB - BLOOD ORDERABLES Final Result [facility] [place] [facility] [address] [facility], [address] [place] [address] * (ABNORMAL) Comprehensive metabolic panel (BMP + Alb, Alk Phos, ALT, AST, Total. Bili, TP) (04/17/2025 1:30 PM CDT) [facility] Sodium 138 135 - 145 mmol/L 04/18/2025 3:50 AM CDT [facility] Potassium 4.2 3.4 - 5.3 mmol/L 04/18/2025 3:50 AM CDT [facility] Carbon Dioxide (CO2) 27 22 - 29 mmol/L 04/18/2025 3:50 AM CDT [facility] Anion Gap 10 7 - 15 mmol/L 04/18/2025 3:50 AM CDT [facility] Urea Nitrogen 22.0(H) 6.0 - 20.0 mg/dL 04/18/2025 3:50 AM CDT [facility] Creatinine 1.15 0.67 - 1.17 mg/dL 04/18/2025 3:50 AM CDT [facility] GFR Estimate 86 >60 mL/min/1.7 3m2 04/18/2025 3:50 AM CDT [facility] Comment:eGFR calculated us2020 CKD-EPI equation. Calcium 9.8 8.8 - 10.4 mg/dL 04/18/2025 3:50 AM CDT [facility] Chloride 101 98 - 107 mmol/L 04/18/2025 3:50 AM CDT [facility] Glucose 90 70 - 99 mg/dL 04/18/2025 3:50 AM CDT [facility] Alkaline Phosphatase 67 40 - 150 U/L 04/18/2025 3:50 AM CDT [facility] AST 27 0 - 45 U/L 04/18/2025 3:50 AM CDT [facility] ALT 34 0 - 70 U/L 04/18/2025 3:50 AM CDT [facility] Protein Total 7.2 6.4 - 8.3 g/dL 04/18/2025 3:50 AM CDT [facility] Albumin 4.6 3.5 - 5.2 g/dL 04/18/2025 3:50 AM CDT [facility] Bilirubin Total 1.3(H) <=1.2 mg/dL 04/18/2025 3:50 AM CDT [facility] Blood BLOOD SPECIMEN / Unknown Venipuncture / Unknown 04/17/2025 1:30 PM CDT 04/17/2025 1:30 PM CDT us Reynlado Sorensen DO LAB - BLOOD ORDERABLES Final Result [facility] [place] [facility] [address] [facility] [address] Building, Room [address] [place] [phone] * HIV Antigen Antibody Combo (09/07/2015 11:03 AM CDT) HIV Antigen Antibody Combo Nonreactive HIV-1 p24 Ag & HIV-1/HIV-2 Ab Not Detected NR [facility] Blood specimen (specimen) 09/07/2015 11:03 AM CDT 09/07/2015 11:12 AM CDT Valeriy Vazquez MD LAB - BLOOD ORDERABLES Fi nal Result [facility] [address] [place] [address] * Hepatitis C antibody (09/07/2015 11:03 AM CDT) Hepatitis C Antibody Nonreactive Assay performance characteristics have not been established for newborns, infants, and children NR [facility] Blood specimen (specimen) 09/07/2015 11:03 AM CDT 09/07/2015 11:12 AM CDT us Valeriy Vazquez MD LAB - BLOOD ORDERABLES Fi nal Result [facility] [address] [place] [address] from Last 3 Months or Most Recently Relevant to Health Maintenance Insurance BCBS OUT OF STATE [facility] [address] OUT OF STATE None (Work) [facility] [place] [id number] Advance Directives For more information, please contact: [phone] * Full Code (Latest Code Status on File) Date Activated Date Inactivated Comments 09/06/2015 6:32 PM 09/10/2015 11:38 AM * Full Code Date Activated Date Inactivated Comments 08/18/2015 4:24 PM 08/22/2015 12:44 PM * Full Code Date Activated Date Inactivated Comments 07/24/2015 9:36 PM 07/25/2015 8:23 PM Care Teams Cane Weigher Relationship Specialty Start Date End Date Reynaldo Sorensen DO [address] [place] [id number] PCP - General Family Medicine 07/26/24 Hany Alexis MD Internal Medicine 12/07/12 Reynaldo Sorensen DO [address] [place] [address] Assigned PCP 09/07/24
--- OUTSIDE RECORDS SUMMARY | 2025-06-09 18:47 | XMS_ITS | Encounter Summary ---
Author Organization [facility] Address [address] [place] [address] Care Team Providers Care Calciner Operator Name Role Phone Angel Maria MD Primary Care Provider [phone] Encounter Details Date Type Department Care Team (Late st Contact Info) Description 02/23/2013 Outside Hospital External to [facility], Provider DISCHARE SUMMARY Social History Tobacco Use Types Packs/Day Years Used Date Smoking Tobacco: Every Day Cigarettes 0.5 0.3 Smokeless Tobacco: Never Alcohol Use Standard Drinks/Week Comments No 0 (1 standard drink = 0.6 oz pur e alcohol) Sober for one month Sex and Gender Information Value Date Recorded Sex Assigned at Male 11/04/2021 7:44 PM IT INFRASTRUCTURE SPECIALIST Legal Sex Male 6:12 AM CDT Gender Identity Male 11/04/2021 7:44 PM IT INFRASTRUCTURE SPECIALIST Sexual Orientation Straight 11/04/2021 7: 44 PM IT INFRASTRUCTURE SPECIALIST Occupation Industry Job Start Date Job End Date unemployed Not on file Not on file Not on file documented as of this encounter Progress Notes * [facility], Provider - 02/23/2013 12:00 AM CDT documented in this encounter Plan of Treatment Not on file documented as of this encounter Visit Diagnoses Not on filedocumented in this encounter Care Teams Calciner Operator Relationship Specialty Start Date End Date Angel Maria MD [address] [place] [address] PCP - General Family Practice 05/20/17 documented as of this encounter
--- OUTSIDE RECORDS SUMMARY | 2025-06-09 18:47 | XMS_ITS | Clinical Summary ---
Author Organization [facility] Address [address] [place] [address] Care Team Providers Care Sports Instructor Name Role Phone Angel Mraia MD Primary Care Provider [phone] Source Comments You are receiving this document as you are listed as the primary care provider,follow-up provider, or the patient has been referred to you for consultation.This is in compliance with the Medicare and[facility] EHR Incentive Program,which states Providers who transition their patient to another setting of careor provider of care or refers their patient to another provider of care shouldprovide summary care record for each transition of care or referral. [facility] Allergies No known active allergies Medications * This document contains information received from the source organization and may not represent a complete record from that organization. methylPREDNISolon e (MEDROL 21 TABLET DOSEPACK) 4 MG tabletIndications :Cervical radiculopathy Take as directed. 21 Tablet 05/01/20 24 Active Additional Information Patient not taking.Reported on 04/03/2025 traZODone (DESYREL) 100 MG tablet Take 1-2 Tablets (100-200 mg) by mouth daily at bedtime. 180 Tablet 3 06/17/20 24 025 Active busPIRone (BUSPAR) 7.5 MG tablet Take 1 Tablet (7.5 mg) by mouth two times a day. 180 Tablet 3 06/17/20 24 025 Active Additional Information Patient not taking.Reported on 06/09/2025 venlafaxine (EFFEXORXR) 75 MG 24 hour release capsule Take 1 Capsule (75 mg) by mouth daily. Active mirtazapine (REMERON) 7.5 MG tablet Take 1 Tablet (7.5 mg) by mouth daily at bedtime. Active cyclobenzaprine (FLEXERIL) 10 MG tablet Take 1 Tablet (10 mg) by mouth at bedtime as needed for Muscle Spasms. 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 Encounters Date Type Department Care Team Description 06/09/2025 3:40 PM CDT Office Visit [facility] [address] [place] [address] Carol Padgett MD Nonintractable headache, unspecified chronicity pattern, unspecified headache type 04/03/2025 12:40 PM CDT Office Visit [facility]ellen [facility] [address] [place] [address] Rafaela Naidu PA-C Inguinal pain, right from Last 3 Months Immunizations Immunization Administration Dates Next Due DTaP 06/08/1997, 7,08/27/1993,1992,1992,1992,1992,0 1992,1992,1992 Flu Vac (3+ yrs) 09/25/2016,09/05/2014, 0 HepA Ped/Adol (1-18 yrs) 03/08/2008,02/15,05/31/2007,2006 HepA, Unspecified Formulation 03/08/2008, 007 HepB Ped/Adol (0-18 yrs) 08/14/2003,02/15,03/13/2003,2002,02/02/2003,08/14/2002 Hib, Unspecified Formulation 08/15/2012, 08/15/2012,06/06/1993,1992,1992,1992,1992,0 1992 Influenza (Fluzone 0.25, 6-35 mos) 09/16/2013 Influenza IIV4 (Quadrivalent ) 0.5mL (29631) 11/04/2022,11/05/2021,10/11/2019,2017,09/22/2017,09/16/2013 Influenza, Unspecified Formulation 07/31/2015 MCV4 (Menactra) 05/31/2007,05/31/2007 MMR 02/02/2003, 3,06/06/1993,1992 MPSV4 (Menomune) 05/31/2007 PPSV23 (Pneumovax) 10/29/2010(Deferred: Patient Refused) Pfizer Monovalent 12+ Purple Top 04/27/2021,03/17 TDAP (BOOSTRIX) 09/16/2013 Td 02/12/2004 Td (7+ yrs) 02/12/2004 Tdap 03/16/2024,09/16/2013 Tetanus Toxoid, Absorbed 02/12/2004 Varicella 05/31/2007 Family History Medical History Relation Name Comments Depression Mother Mom Stroke Mother Mom Diabetes, Type II Maternal Grandfather Hypertension Maternal Grandfather Hypertension Maternal Grandmother drug dependency [Other] Maternal Uncle Hypertension Paternal Grandfather Hypertension Paternal Grandmother Depression Sister Maryann Relation Name Status Comments Mother Mom Maternal Grandfather Maternal Grandmother Maternal Uncle Paternal Grandfather Paternal Grandmother Sister Maryann Social History Tobacco Use Types Packs/Day Years [...] Sex Assigned at Male 11/04/2021 7:44 PM CLIN NURSE SPEC Legal Sex Male 6:12 AM CDT Gender Identity Male 11/04/2021 7:44 PM CLIN NURSE SPEC Sexual Orientation Straight 11/04/2021 7: 44 PM CLIN NURSE SPEC Occupation Industry Job Start Date Job End Date unemployed Not on file Not on file Not on file Last Filed Vital Signs Vital Sign Reading Time Taken Comments Blood Pressure 139/72 06/09/2025 3:25 PM CDT Pulse 84 06/09/2025 3:25 PM CDT Temperature 36.6 C (97.9 F) 06/09/2025 3:25 PM CDT Respiratory Rate 16 06/09/2025 3:25 PM CDT Oxygen Saturation 97% 06/09/2025 3:25 PM CDT Inhaled Oxygen Concentration - - Weight 79.4 kg (175 lb) 05/01/2024 12:51 PM CDT Height 180.3 cm (5' 11) 05/01/2024 12:51 PM CDT Body Mass Index 24.41 05/01/2024 12:51 PM CDT Plan of Treatment Health Maintenance Due Date Last Done Comments COVID-19 Vaccine () 07/17/2024 04/27/2021, 04/06/2021 Influenza Vaccine (#1) 2025 2, 11/05/2021, 10/11/2019, Additional history exists Adult Preventive Visit 03/16/2026 4, 11/05/2021, 10/05/2019, Additional history exists DTaP/Tdap/Td Vaccine (9 - Tdap) 03/16/2034 03/16/2024, 09/16/2013, 09/16/2013, Additional history exists Zoster/Shingles Vaccine (1 of 2) 02/19/2042 HepB Vaccine Completed 08/14/2003, 02/15, 03/13/2003, Additional history exists MCV4 Vaccine Aged Out 05/31/2007, 05/16, 05/31/2007 No longer eligible based on patient's age to complete this topic HepA Vaccine Completed 03/08/2008, 02/15, 03/08/2008, Additional history exists Hib Vaccine Completed 08/15/2012, 07/19, 06/06/1993, Additional history exists HIV Screening (Preventive Services) Completed 02/08/2016, 10/12/2015, 01/02/2015, Additional history exists Hep C Screening (Preventive Services) Completed 02/08/2016, 10/12/2015, 01/02/2015, Additional history exists HPV Vaccine Aged Out No longer eligi ble based on patient's age to complete this topic IPV (Polio) Vaccine Aged Out No longe r eligible based on patient's age to complete this topic Meningococcal B Vaccine Aged Out No l onger eligible based on patient's age to complete this topic Pneumococcal Vaccine Aged Out No long er eligible based on patient's age to complete this topic Procedures Procedure Name Priority Date/Time Associated Diagnosis Comments HIV ANTIBODY Routine 02/08/2016 2:42 PM CDT Screening for STDs (sexually transmitted diseases) HEPATITIS C ANTIBODY, WITH REFLEX (ANTI-HCV) Routine 02/08/2016 2:42 PM CDT Screening for STDs (sexually transmitted diseases) from Last 3 Months or Most Recently Relevant to Health Maintenance Results * HEPATITIS C ANTIBODY, WITH REFLEX (02/08/2016 2:42 PM CDT) Anti-HCV Negative (Non Reactive) [facility] Comment:Does Not Rule Out In fection with HCV 02/08/2016 2:42 PM CDT 02/08/2016 2:44 PM CDT Narrative [facility] - 02/09/2016 10:50 AM CDT Performed at [facility], [address] [place], [place] [id number] Hany Alexis MD LAB_1 Final Result Performing Organization Address City/[facility] de Phone Number [facility] [phone] * HIV ANTIBODY (02/08/2016 2:42 PM CDT) HIV 1/2 Antibody Negative (Non Reactive) [facility] Comment: HIV Antibody testing may be falsely negative during the window period. If the patient has had recent exposure (within the past four weeks), consider contacting Infectious Diseases for clarification. 02/08/2016 2:42 PM CDT 02/08/2016 2:45 PM CDT Narrative [facility] - 02/09/2016 10:51 AM CDT Performed at [facility], [address] [place] [id number] Hany Alexis MD LAB_1 Final Result Performing Organization Address City/[facility] Co de Phone Number [facility] [phone] from Last 3 Months or Most Recently Relevant to Health Maintenance Insurance BCBS [place] Advance Directives * Full Code (Latest Code Status on File) Date Activated Date Inactivated Comments 09/06/2011 11:05 AM 09/08/2011 2:57 PM * Full Code Date Activated Date Inactivated Comments 12/26/2010 12:02 PM 01/01/2011 6:19 PM * Full Code Date Activated Date Inactivated Comments 10/23/2010 3:36 PM 10/31/2010 2:22 PM * Full Code Date Activated Date Inactivated Comments 10/23/2010 9:38 AM 10/23/2010 3:36 PM * Full Code Date Activated Date Inactivated Comments 10/23/2010 6:53 AM 10/23/2010 9:38 AM Care Teams Sports Instructor Relationship Specialty Start Date End Date Angel Maria MD [address] [place] [address] PCP - General Family Practice 05/20/17
--- OUTSIDE RECORDS SUMMARY | 2025-06-09 18:47 | XMS_ITS | Encounter Summary ---
Author Organization [employer] Address [address] [place] [address] Care Team Providers Care Fine Grade Operator Name Role Phone Angel Maria MD Primary Care Provider [phone] Encounter Details Date Type Department Care Team (Late st Contact Info) Description 12/07/2012 Emergency Room External to [facility] ADDICTION PROBLEM Social History Tobacco Use Types Packs/Day Years Used Date Smoking Tobacco: Every Day Cigarettes 0.5 0.3 Smokeless Tobacco: Never Alcohol Use Standard Drinks/Week Comments No 0 (1 standard drink = 0.6 oz pur e alcohol) Sober for one month Sex and Gender Information Value Date Recorded Sex Assigned at Male 11/04/2021 7:44 PM SKIING INSTRUCTOR Legal Sex Male 6:12 AM CDT Gender Identity Male 11/04/2021 7:44 PM SKIING INSTRUCTOR Sexual Orientation Straight 11/04/2021 7: 44 PM SKIING INSTRUCTOR Occupation Industry Job Start Date Job End Date unemployed Not on file Not on file Not on file documented as of this encounter Progress Notes * [facility] - 12/07/2012 12:00 AM CST NG INSTRUCTOR documented in this encounter Plan of Treatment Not on file documented as of this encounter Visit Diagnoses Not on filedocumented in this encounter Care Teams Fine Grade Operator Relationship Specialty Start Date End Date Angel Maria MD [address] [place] [address] PCP - General Family Practice 05/20/17 documented as of this encounter
--- OUTSIDE RECORDS SUMMARY | 2025-06-09 18:47 | XMS_ITS | Encounter Summary ---
Author Organization [id number] Address [address] [place] [address] Care Team Providers Care Certified Professional Controller Name Role Phone Angel Maria MD Primary Care Provider [phone] Encounter Details Date Type Department Care Team (Late st Contact Info) Description 08/18/2015 Emergency Room External to [facility] Of ADDICTION PROBLEM Social History Tobacco Use Types Packs/Day Years Used Date Smoking Tobacco: Every Day Cigarettes 0.5 0.3 Smokeless Tobacco: Never Alcohol Use Standard Drinks/Week Comments No 0 (1 standard drink = 0.6 oz pur e alcohol) Sober for one month Sex and Gender Information Value Date Recorded Sex Assigned at Male 11/04/2021 7:44 PM PARIMUTUEL CLERK Legal Sex Male 6:12 AM CDT Gender Identity Male 11/04/2021 7:44 PM PARIMUTUEL CLERK Sexual Orientation Straight 11/04/2021 7: 44 PM PARIMUTUEL CLERK Occupation Industry Job Start Date Job End Date unemployed Not on file Not on file Not on file documented as of this encounter Plan of Treatment Not on file documented as of this encounter Visit Diagnoses Not on filedocumented in this encounter Care Teams Certified Professional Controller Relationship Specialty Start Date End Date Angel Maria MD [address] [place] [address] PCP - General Family Practice 05/20/17 documented as of this encounter
--- OUTSIDE RECORDS SUMMARY | 2025-06-09 18:47 | XMS_ITS | Encounter Summary ---
Author Organization [employer] Address [address] [place] [address] Care Team Providers Care Abstracter Name Role Phone Angel Maria MD Primary Care Provider [phone] Encounter Details Date Type Department Care Team (Late st Contact Info) Description 07/24/2015 Emergency Room External to [facility] Of OPIOID DEPENDENCE WITH WITHDRAWAL Social History Tobacco Use Types Packs/Day Years Used Date Smoking Tobacco: Every Day Cigarettes 0.5 0.3 Smokeless Tobacco: Never Alcohol Use Standard Drinks/Week Comments No 0 (1 standard drink = 0.6 oz pur e alcohol) Sober for one month Sex and Gender Information Value Date Recorded Sex Assigned at Male 11/04/2021 7:44 PM SWIMMING POOL PLASTERER HELPER Legal Sex Male 6:12 AM CDT Gender Identity Male 11/04/2021 7:44 PM SWIMMING POOL PLASTERER HELPER Sexual Orientation Straight 11/04/2021 7: 44 PM SWIMMING POOL PLASTERER HELPER Occupation Industry Job Start Date Job End Date unemployed Not on file Not on file Not on file documented as of this encounter Plan of Treatment Not on file documented as of this encounter Visit Diagnoses Not on filedocumented in this encounter Care Teams Abstracter Relationship Specialty Start Date End Date Angel Maria MD [address] [place] [address] PCP - General Family Practice 05/20/17 documented as of this encounter
--- OUTSIDE RECORDS SUMMARY | 2025-06-09 18:47 | XMS_ITS | Encounter Summary ---
Author Organization [employer] Address [address] [place] [address] Care Team Providers Care Rubber Cutter Name Role Phone Angel Maria MD Primary Care Provider [phone] Encounter Details Date Type Department Care Team (Late st Contact Info) Description 09/10/2015 Outside Hospital External to [facility] Of DISCHARGE SUMMARY Social History Tobacco Use Types Packs/Day Years Used Date Smoking Tobacco: Every Day Cigarettes 0.5 0.3 Smokeless Tobacco: Never Alcohol Use Standard Drinks/Week Comments No 0 (1 standard drink = 0.6 oz pur e alcohol) Sober for one month Sex and Gender Information Value Date Recorded Sex Assigned at Male 11/04/2021 7:44 PM HOSPITALITY SERVICES MANAGER Legal Sex Male 6:12 AM CDT Gender Identity Male 11/04/2021 7:44 PM HOSPITALITY SERVICES MANAGER Sexual Orientation Straight 11/04/2021 7: 44 PM HOSPITALITY SERVICES MANAGER Occupation Industry Job Start Date Job End Date unemployed Not on file Not on file Not on file documented as of this encounter Plan of Treatment Not on file documented as of this encounter Visit Diagnoses Not on filedocumented in this encounter Care Teams Rubber Cutter Relationship Specialty Start Date End Date Angel Maria MD [address] [place] [address] PCP - General Family Practice 05/20/17 documented as of this encounter
--- OUTSIDE RECORDS SUMMARY | 2025-06-09 18:47 | XMS_ITS | Encounter Summary ---
Author Organization [employer] Address [address], [place] [address] Care Team Providers Care Hospice Art Therapist Name Role Phone Angel Maria MD Primary Care Provider [phone]- [phone] Encounter Details Date Type Department Care Team (Late st Contact Info) Description 05/11/2012 Correspondence [facility] [address] [place], [place] [address] Hany Alexis MD REQUEST FOR MED OPINION Social History Tobacco Use Types Packs/Day Years Used Date Smoking Tobacco: Every Day Cigarettes 0.5 0.3 Smokeless Tobacco: Never Alcohol Use Standard Drinks/Week Comments No 0 (1 standard drink = 0.6 oz pur e alcohol) Sober for one month Sex and Gender Information Value Date Recorded Sex Assigned at Male 11/04/2021 7:44 PM LOCKSTITCH BINDER Legal Sex Male 6:12 AM CDT Gender Identity Male 11/04/2021 7:44 PM LOCKSTITCH BINDER Sexual Orientation Straight 11/04/2021 7: 44 PM LOCKSTITCH BINDER Occupation Industry Job Start Date Job End Date unemployed Not on file Not on file Not on file documented as of this encounter Progress Notes * Hany Alexis MD - 05/11/2012 12:00 AM CDT documented in this encounter Plan of Treatment Not on file documented as of this encounter Visit Diagnoses Not on filedocumented in this encounter Care Teams Hospice Art Therapist Relationship Specialty Start Date End Date Angel Maria MD [address] [place] [address] PCP - General Family Practice 05/20/17 documented as of this encounter
--- OUTSIDE RECORDS SUMMARY | 2025-06-09 18:48 | XMS_ITS | Encounter Summary ---
Author Organization [employer] Address [address] [place] [address] Care Team Providers Care Strawhat Sizer Name Role Phone Hany Alexis MD Unavailable [phone] Reynaldo Sorensen DO Primary Care Provider [phone] Reynaldo Sorensen DO Unavailable [phone] Encounter Details Date Type Department Care Team (Latest Contact Info) Description 06/09/2025 Travel Social History Tobacco Use Types Packs/Day Years [...] PM CDT Legal Sex Male 4:41 AM FINE ARTS PACKER Gender Identity Male 07/08/2024 1:56 PM CDT Sexual Orientation Not on file documented as of this encounter Plan of Treatment Not on file documented as of this encounter Visit Diagnoses Not on filedocumented in this encounter Additional Health Concerns Assessment Noted Time PHQ-9 Depression Total Score: 7 04/17/20 25 10:32 AM CDT documented as of this encounter Care Teams Strawhat Sizer Relationship Specialty Start Date End Date Reynaldo Sorensen DO [address] [place] [address] PCP - General Family Medicine 07/26/24 Hany Alexis MD Internal Medicine 12/07/12 [place] [address] [place] [address] Assigned PCP 09/07/24 documented as of this encounter
[2025-06-09 19:02] VITALS: BP 129/69; PULSE 80; RESP 16; TEMP 37.2; O2SAT 97; BMI 26.6
--- NOTE | 2025-06-09 19:23 | ED_ITS ---
HPI - General Adult General Date Seen: 06/09/25 Chief complaint: Headache/Migraine Stated complaint: Migraines - recommended MRI Time Seen by Provider: 06/09/25 19:17 History of Present Illness HPI narrative: 35 yo M with a past medical history of depression/anxiety, and history of opiate addiction in remission presenting to the ER today accompanied by his family with concern for headache and neck pain. His symptoms actually started about a month ago. He was exercising at the gym and lifting weights when he had a sudden onset of a severe headache that is been located mostly on the right side of his head. The headache is often in the right retro-orbital region but also sometimes seems to come from the base of the neck on that right side. Headache is been present pretty much continuously since onset a month ago but sometimes is at a very low level and at other times is quite severe. It tends to get worse with exercise and physical exertion so he has not been able to go to the gym. There is no other clear pattern to the headache. No change with laying down or sitting up or position, no change with movement. The headaches been getting worse over the past few days and is now associated with some shakiness in his vision (but not blurry vision or double vision or loss of vision) and some mild nausea. He has also been having some pain in his neck. He saw an orthopedic doctor in the [facility] and reports that he had x-ray of his is neck that were normal. He has been trying to take [id number] medications for his headache and they are only partially and temporarily effective. He went to an urgent care in [place] today and was told to go to the ER in [place] for a brain MRI. He went to the ER in [place] but the wait in the [facility] was too long so he left and came here. He does have a family history of cerebral aneurysms Related Data Home Medications ?Medication ?Instructions ?Recorded ?Confirmed mirtazapine 7.5 mg tablet 7.5 mg PO QDAY 10/10/2405/17 trazodone 50 mg tablet 50 mg PO QDAY 10/10/2406/09 venlafaxine 75 mg capsule,extended 75 mg PO QDAY 10/1006/09/25 release 24 hr Allergies Allergy/AdvReac Type Severity Reaction Status Date / Time No Known Drug Allergies Allergy Verified 06/09/25 19:09 [facility] Social History Smoking Status: Former smoker How often do you have a drink containing alcohol: never AUDIT-C Alcohol total score: 0 Non-prescribed substance use: marijuana (any form) Non-prescribed substance use details: medical, 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 Alert. Conversant. Non toxic. HENT: Head: Atraumatic. No depressed skull fracture, Raccoon Eyes, Simon's sign, or hemotympanum. Face normal. TMs normal Nose: Nose normal. Mouth/Throat: Oral mucosa is clear and moist. no trismus. Pharynx normal. Tonsils symmetric. No tonsillar enlargement, erythema, or exudate. Eyes: Conjunctivae normal. EOM normal. Pupils equal, round, and reactive to light. No scleral icterus. Neck: Normal range of motion. Neck supple. No tracheal deviation present. Cardiovascular: Normal rate, regular rhythm. No gallop. No friction rub. No murmur heard. Symmetric radial artery pulses Pulmonary/Chest: Effort normal. No stridor. No respiratory distress. No wheezes. No rales. No rhonchi . No tenderness. Abdominal: Soft. Bowel sounds normal. No distension. No mass. No tenderness. No rebound. No guarding. Musculoskeletal: RUE: Normal range of motion. No tenderness. No deformity LUE: Normal range of motion. No tenderness. No deformity RLE: Normal range of motion. No edema. No tenderness. No deformity LLE: Normal range of motion. No edema. No tenderness. No deformity Lymph: No cervical adenopathy. Neurological: Mental status normal. Attention normal. Alert and oriented x3. GCS 15. Memory normal. Speech fluent. Cognition normal. Cranial Nerves intact II-XII except I did not formally test gag or visual acuit y. EOMI. Palate elevates symmetrically and tongue protrudes in the midline. Strength: 5/5 trapezius on the right and left 5/5 deltoid on the right and left 5/5 biceps on the right and left 5/5 triceps on the right and left 5/5 hspt tutor on the right and left 5/5 thumb opposition on the right and le ft 5/5 finger abduction on the right and le ft 5/5 hip flexors (L3) on the right and le ft 5/5 quadriceps (L4) on the right and lef t 5/5 tibialis anterior on the right and l eft 5/5 EHL (L5) on the right and left 5/5 gastrocnemius (S1) on the right and left 5/5 hamstring on the right and left Sensation intact to light touch in both upper extremities (C4-T1) Sensation intact to light touch in Both lower extremities (L4-S1). Finger to nose and coordination normal. Gait normal. Skin: Skin is warm and dry. No rash noted. No pallor. Normal capillary refill. Psychiatric: Normal mood. Normal affect. Const: Vital Signs, click to edit/add: Vital Signs - 24 hr 06/09/25 19:02 06/09/25 21:14 Temperature 98.9 F Pulse Rate [Left P ulse Oximeter] 80 62 Respiratory Rate 16 16 Blood Pressure [Ri ght Upper Arm] 129/69 124/72 Pulse Oximetry 97 98 Oxygen Delivery Me thod Room Air Room Air Course Course ED Course: Recheck-headache somewhat improved after migraine cocktail. Not resolved but he feels comfortable going home. Vital Signs Vital signs: Initial Vital Signs Temperature 98.9 F 06/09/25 19:02 Temperature Source Oral 06/09/25 19:02 Pulse Rate 80 06/09/25 19:02 Respiratory Rate 16 06/09/25 19:02 Blood Pressure 129/69 06/09/25 19:02 Blood Pressure Mean 89 06/09/25 19:02 Blood Pressure Position Semi-Fowlers 06/09/25 19:02 Pulse Oximetry 97 06/09/25 19:02 Oxygen Delivery Method Room Air 06/09/25 19:02 Vital Signs Temperature 98.9 F 06/09/25 19:02 Pulse Rate 80 06/09/25 19:02 Respiratory Rate 16 06/09/25 19:02 Blood Pressure 129/69 06/09/25 19:02 Pulse Oximetry 97 06/09/25 19:02 Oxygen Delivery Method Room Air 06/09/25 19:02 Temperature 98.9 F 06/09/25 19:02 Pulse Rate 62 06/09/25 21:14 Respiratory Rate 16 06/09/25 21:14 Blood Pressure 124/72 06/09/25 21:14 Pulse Oximetry 98 06/09/25 21:14 Oxygen Delivery Method Room Air 06/09/25 21:14 Medications Administered Medications: Discontinued Medications Generic Name Dose Route Start Last Admin Trade Name Kaz PRN Reason Stop Dose Admin Diphenhydramine HCl 12.5 mg 06/09/25 19:44 06/09/25 20:12 Diphenhydramine 50 Mg/Ml Inj IVP 06/09/25 19:45 12.5 mg ONCE ONE Administration Sodium Chloride 1,000 mls @ 1,000 mls/hr 06/09/25 19:45 06/09/25 21:08 0.9 % Sodium Chloride 1000 Ml IV 06/09/25 20:44 Infused .Q1H MIKAYLA Infusion Ketorolac Tromethamine 15 mg 06/09/25 19:44 06/09/25 20:11 Ketorolac 15 Mg/Ml Inj IVP 06/09/25 19:45 15 mg ONCE ONE Administration Metoclopramide HCl 10 mg 06/09/25 19:44 06/09/25 20:16 Metoclopramide Hcl 5 Mg/Ml Inj IVP 06/09/25 19:45 10 mg ONCE ONE Administration Medical Decision Making [facility] Narrative Medical decision making narrative: [facility] patient presents with a headache that started abruptly while he was exercising several weeks ago and has been present for to a fluctuating level ever since then.. A broad differential diagnosis was considered including tension, migraine, analgesic rebound, occipital neuralgia, etc. Other less common but serious causes considered included meningitis, encephalitis, subarachnoid bleed, stroke, tumor, etc. With this new headache an abrupt onset while exercising concern is for possible vascular abnormality. He was seen in urgent care today who recommended MRI and referred him to a different ER to get that MR imaging done. He could wait long enough in the ER lobby so came here. Unfortunately we do not have access MRI here in the [facility] on Thursday evening. We discussed options for workup and occluding referral back to the [facility] for MR imaging versus workup here. We do have CT and CTA available. Discussed with the patient that noncontrast CT bite self would have low sensitivity for subarachnoid hemorrhage especially since been several weeks since the onset of headache. However CT would be helpful look for other causes of headache such as hydrocephalus, skull fracture, in potentially could show large brain tumors, cerebral edema, or other abnormalities. We also discussed that CTA might be helpful to look for vascular abnormality such as intracranial aneurysms or cervical artery dissections that could present with sudden onset during exercise. CT head and CTA are obtained and are fortunately normal based on preliminary reads. Laboratory workup is reassuring. He is not having any fever or neck stiffness to suggest meningitis. We discussed possible lumbar puncture to check for intracranial pressure. At this point the patient and I agree that the discomfort and risk of LP would outweigh the benefit. However precautions for return to the ER reviewed and if symptoms worse, would strongly consider further workup with LP. He has no known exposure to carbon monoxide. His and daughter are here with him and they are not been having any headaches. Patient's questions were answered and they feel improved after above interventions in ED. Supportive outpatient management is therefore indicated. He will need close outpatient follow-up with his PCP to consider further imaging with MRI of his brain and potential MRI of his C-spine since he has also been having some neck pain. Headache precautions given for home. Lab Data Labs: Lab Results 06/09/25 Range/Units 19:50 WBC 7.69 (4.50-11.00) K/uL RBC 5.28 (4.30-5.90) m/uL Hgb 15.6 (13.5-17.5) gm/dL Hct 45.8 (37.0-53.0) % MCV 87 (80-100) fL MCH 30 (26-34) pg MCHC 34 (32-36) gm/dL RDW Coeff of Omega 12.0 (11.5-15.5) % Plt Count 273 (140-440) K/uL Neut % (Auto) 62.5 (42.0-72.0) % Lymph % (Auto) 27.3 (20-44) % [place] % (Auto) 7.5 (0.0-11.0) % Eos % (Auto) 2.2 (0.0-7.0) % Baso % (Auto) 0.4 (0.0-3.0) % Neut # (Auto) 4.80 (1.7-7.0) K/uL Lymph # (Auto) 2.10 (0.90-2.90) K/uL [place] # (Auto) 0.60 (0.00-0.90) K/UL Eos # (Auto) 0.17 (0.00-0.50) K/uL Baso # (Auto) 0.03 (0.00-0.30) K/uL Abs Immat Gran (auto) 0.01 (0.00-0.30) K/uL Imm/Tot Granulo (auto) 0.1 % INR 1.01 (0.91-1.10) Sodium 137 (135-149) mmol/L Potassium 4.1 (3.6-5.1) mmol/L Chloride 102 (96-114) mmol/L Carbon Dioxide 29 (20-32) mmol/L Anion Gap 6 L (7-15) mEq/L BUN 19 (5-24) mg/dL Creatinine 1.2 (0.5-1.5) mg/dL Estimated Creat Clear 93.25 Estimated GFR 82 ml/min Glucose 96 (60-115) mg/dL Calcium 9.4 (8.4-10.6) mg/dL Imaging Data CTA Head: Attestation: I have reviewed the pertinent imaging results. Radiologist's impression: IMPRESSION: No acute intracranial abnormality at CTA. CTA Neck: Attestation: I have reviewed the pertinent imaging results. Radiologist's impression: IMPRESSION: Unremarkable neck CTA. No significant carotid or vertebral artery stenosis or dissection. CT scan - head: Attestation: I have reviewed the pertinent imaging results. Radiologist's impression: IMPRESSION: IMPRESSION:1. No CT evidence of acute cortical infarct. No acute intracranial hemorrhage. No other acute intracranial findings. Discharge Plan Discharge Clinical Impression: Headache, Neck pain Patient Disposition: Home, Self-Care Condition: Stable Instructions: Acute Headache (DC) Additional Instructions: As we discussed, the CT scan of your brain and the blood vessels in your head and neck looks normal. Your laboratory workup looks reassuring. Although your workup is reassuring so far, I want to monitor your symptoms carefully. If you have worsening headache, worsening neck pain, or new symptoms such as fever, confusion, double vision, vomiting, numbness or weakness in your arms or legs, come back to the ER right away. Please follow-up with your regular doctor for recheck next week and ask your regular doctor to re-evaluate your headache and neck pain. Your doctor may need to order an MRI of your cervical spine and of your brain. Prescriptions: No Action trazodone 50 mg tablet 50 mg PO QDAY venlafaxine 75 mg capsule,extended release 24hr 75 mg PO QDAY mirtazapine 7.5 mg tablet 7.5 mg PO QDAY Follow Up/Referrals: Zacarias Luther MD [Primary Care Provider, Family Practice] Stand Alone Forms: [employer]formerly known as [employer]) Info Instructions
--- NOTE | 2025-06-09 19:44 | CRLHL7_ITS ---
For Patients: As a result of the Century Cures Act, medical imaging exams and procedure reports are released immediately into your electronic medical record. You may view this report before your referring provider. If you have questions, please contact your health care provider. INDICATION: Headaches. TECHNIQUE: CT of the head without contrast. Coronal and sagittal reformats are included. COMPARISON: None. FINDINGS: No CT evidence of acute cortical infarct. No loss of rivers white matter differentiation. No hyperdense vessels to suggest intracranial thrombus. No acute intracranial hemorrhage. No mass effect or midline shift. No hydrocephalus or extra-axial collections. White matter is within normal limits for age. No acute osseous abnormalities. Mastoid air cells and paranasal sinuses are clear. Normal soft tissues. IMPRESSION: IMPRESSION:1. No CT evidence of acute cortical infarct. No acute intracranial hemorrhage. No other acute intracranial findings. Please note that all CT scans at this facility use dose modulation, iterative reconstruction, and/or weight-based dosing when appropriate to reduce radiation dose to as low as reasonably achievable. Dictated by Andrea Dean MD @ 06/09/2025 8:28:39 PM (Electronically Signed)
--- NOTE | 2025-06-09 19:44 | CRLHL7_ITS ---
For Patients: As a result of the Century Cures Act, medical imaging exams and procedure reports are released immediately into your electronic medical record. You may view this report before your referring provider. If you have questions, please contact your health care provider. INDICATION: Sudden severe headache. TECHNIQUE: CTA neck with contrast bolus tracking, 3D angiographic rendering using maximum intensity projection (MIP) and images permanently archived. FINDINGS: There is no significant carotid artery stenosis or dissection. There is no significant vertebral artery stenosis or dissection. The soft tissues of the neck are within normal limits. The cervical spine is in normal alignment. IMPRESSION: Unremarkable neck CTA. No significant carotid or vertebral artery stenosis or dissection. Please note that all CT scans at this facility use dose modulation, iterative reconstruction, and/or weight-based dosing when appropriate to reduce radiation dose to as low as reasonably achievable. Dictated by Bridger Moser MD @ 06/09/2025 9:02:42 PM (Electronically Signed)
--- NOTE | 2025-06-09 19:44 | CRLHL7_ITS ---
For Patients: As a result of the Century Cures Act, medical imaging exams and procedure reports are released immediately into your electronic medical record. You may view this report before your referring provider. If you have questions, please contact your health care provider. INDICATION: Sudden severe headache. TECHNIQUE: CTA head with contrast bolus tracking, 3D angiographic rendering using maximum intensity projection (MIP) and images permanently archived. FINDINGS: There is normal opacification of the intracranial vasculature. There is no large vessel occlusion. No aneurysm is identified. IMPRESSION: No acute intracranial abnormality at CTA. Please note that all CT scans at this facility use dose modulation, iterative reconstruction, and/or weight-based dosing when appropriate to reduce radiation dose to as low as reasonably achievable. Dictated by Bridger Moser MD @ 06/09/2025 9:01:37 PM (Electronically Signed)
[2025-06-09 19:58] LABS: Hematocrit* 45.8 % (37.0-53.0); Hemoglobin* 15.6 gm/dL (13.5-17.5); Immature Granulocytes Abs Auto 0.01 K/uL (0.00-0.30); Immature Granulocytes Pct Auto 0.1 %; Lymphocytes Absolute Auto 2.10 K/uL (0.90-2.90); Mean Corpuscular HGB Conc 34 gm/dL (32-36); Mean Corpuscular Hemoglobin 30 pg (26-34); Mean Corpuscular Volume 87 fL (80-100); RDW Coefficient of Variation % 12.0 % (11.5-15.5); Red Blood Count* 5.28 m/uL (4.30-5.90); White Blood Count* 7.69 K/uL (4.50-11.00)
[2025-06-09 20:03] LABS: Slide Review Reflex No
[2025-06-09 20:14] LABS: Chloride* 102 mmol/L (96-114); Potassium* 4.1 mmol/L (3.6-5.1); Sodium* 137 mmol/L (135-149)
[2025-06-09] MEDS: METOCLOPRAMIDE HCL 5 MG/ML INJ 10 MG IVP (20:16)
[2025-06-09 20:17] LABS: Anion Gap 6 mEq/L (7-15); Blood Urea Nitrogen* 19 mg/dL (5-24); Calcium* 9.4 mg/dL (8.4-10.6); Carbon Dioxide* 29 mmol/L (20-32); Creatinine* 1.2 mg/dL (0.5-1.5); Est. Creatinine Clearance* 93.25; Estimated Glomerular Filt Rate 82 ml/min; Glucose* 96 mg/dL (60-115); INR 1.01 (0.91-1.10); Prothrombin Time 14.1 Seconds
[2025-06-09 21:14] VITALS: BP 124/72; PULSE 62; RESP 16; O2SAT 98
== END 2025-06-09 21:29 | disposition home or self-care (01) ==
PROVIDERS: Emergency Provider Emergency Medicine; PCP Family Medicine
DX: R51.9 Headache, unspecified (principal); M54.2 Cervicalgia
CPT/HCPCS: 36415; 70450; 70496; 70498; 80048; 85025; 85610; 96374; 96375; 99283; 99284; J1200; J1885; J2765; J7030; Q9967